=== PATIENT | female | born 1965 | race Caucasian/White ===

== ENCOUNTER 2020-12-06 09:58 | Emergency (ER) | payer OTHER, MEDICAID ==
[~2020-12-06] VITALS: Ht 170.2 cm; Wt 77.1 kg
[2020-12-06 10:06] VITALS: BP_SYST 96
[2020-12-06 10:50] LABS: BASOPHILS # (AUTO) 0.1 K/uL (0.0-0.2); BASOPHILS % (AUTO) 0.9 % (0.0-2.0); EOSINOPHILS # (AUTO) 0.1 K/uL (0.0-0.4); EOSINOPHILS % (AUTO) 1.6 % (0.0-4.0); HEMATOCRIT 46.3 % (36-48); HEMOGLOBIN 15.5 g/dL (12.0-16.0); LYMPHOCYTES # (AUTO) 1.7 K/uL (1.0-5.5); MEAN CORPUSCULAR HEMOGLOBIN 31 pg (27-31); MEAN CORPUSCULAR HGB CONC 34 % (32-36); MEAN CORPUSCULAR VOLUME 92 fL (79.0-98.0); MONOCYTES # (AUTO) 0.4 K/uL (0.0-1.0); MONOCYTES % (AUTO) 4.9 % (1.7-9.3); NEUTROPHILS # (AUTO) 5.1 K/uL (1.8-7.7); NEUTROPHILS % (AUTO) 69.6 % (40.0-70.0); PLATELET COUNT (AUTO) 311 K/uL (130-430); RED BLOOD CELL COUNT(AUTO) 5.03 MIL/uL (4.2-6.2); RED CELL DISTRIBUTION WIDTH 14.5 % (9.0-15.0); WHITE BLOOD COUNT (AUTO) 7.3 K/uL (4.8-10.8)
[2020-12-06 10:54] LABS: CALCIUM 8.9 mg/dL (8.4-11.0); CREATININE 1.02 mg/dL (0.55-1.30); POTASSIUM 4.1 mmol/L (3.5-5.1)
[2020-12-06 11:01] LABS: ALBUMIN 3.9 g/dL (3.4-4.8); TOTAL BILIRUBIN 0.9 mg/dL (0.0-1.0)
[2020-12-06 11:39] LABS: PROTHROMBIN TIME 9.9 SECS (9.5-12.5)
[2020-12-06 12:40] VITALS: BP_SYST 96
== END 2020-12-06 12:40 | disposition home or self-care (01) ==
LOC: SED 09:58
DX: R55 Syncope and collapse (principal); Z88.5 Allergy status to narcotic agent; Z88.8 Allergy status to other drugs, medicaments and biological substances
CPT/HCPCS: 36415; 70450-TC; 71045; 76376; 80053; 82550-TC; 83605; 84484; 85025; 85610-TC; 85730-TC; 93005; 99285

== ENCOUNTER 2021-11-27 18:07 | Emergency (ER) | payer OTHER, MEDICAID ==
[~2021-11-27] VITALS: Ht 165.1 cm; Wt 99.8 kg
--- NOTE | 2021-11-27 18:27 | NUR ---
Patient to ER bed 02 to gown for evaluation. Side rails up. Report RECEIVED FROM CARLY HERNANDEZ
--- NOTE | 2021-11-27 18:30 | NUR ---
PATIENT BROUGHT IN BLS FROM [facility] IN THE BOX COMPLAINING OF BILATERAL LEG PAIN AND SWELLING. PATIENT REPORTS HAS BEEN TO 3 OTHER HOSPITALS THIS WEEK BUT HAS BEEN DISCHARGED EACH TIME. PAIN 10/10 PATIENT IS CALM AND EYES ARE CLOSED. VSS. NO OTHER COMPLAINTS/INJURIES PER PATIENT OR NOTED.
[2021-11-27 18:34] VITALS: BP_SYST 101
--- NOTE | 2021-11-27 18:38 | NUR ---
ER at bedside examining patient.
--- NOTE | 2021-11-27 19:41 | NUR ---
PATIENT MOVED TO [facility] STATES THAT SHE IS CLAUSTROPHOBIC AND NEEDS TO BE OPEN ROOM.
--- NOTE | 2021-11-27 19:54 | NUR ---
PATIENT OFF UNIT TO RADIOLOGY WITH [employer] [facility] FOR BLE
--- NOTE | 2021-11-27 20:12 | NUR ---
RETURNED FROM ULTRASOUND. VSS
--- NOTE | 2021-11-27 20:40 | NUR ---
PHLE[facility] AT BEDSIDE FOR BLOOD DRAW
[2021-11-27 20:54] LABS: BASOPHILS % (AUTO) 0.5 % (0.0-2.0); EOSINOPHILS # (AUTO) 0.1 K/uL (0.0-0.4); EOSINOPHILS % (AUTO) 2.6 % (0.0-4.0); HEMATOCRIT 36.5 % (36-48); HEMOGLOBIN 12.1 g/dL (12.0-16.0); LYMPHOCYTES # (AUTO) 0.7 K/uL (1.0-5.5); LYMPHOCYTES % (AUTO) 13.3 % (20.5-51.5); MEAN CORPUSCULAR HEMOGLOBIN 30 pg (27-31); MEAN CORPUSCULAR HGB CONC 33 % (32-36); MEAN CORPUSCULAR VOLUME 89 fL (79.0-98.0); MONOCYTES # (AUTO) 0.3 K/uL (0.0-1.0); MONOCYTES % (AUTO) 5.4 % (1.7-9.3); NEUTROPHILS # (AUTO) 4.4 K/uL (1.8-7.7); NEUTROPHILS % (AUTO) 78.2 % (40.0-70.0); PLATELET COUNT (AUTO) 293 K/uL (130-430); RED BLOOD CELL COUNT(AUTO) 4.11 MIL/uL (4.2-6.2); RED CELL DISTRIBUTION WIDTH 13.6 % (9.0-15.0); WHITE BLOOD COUNT (AUTO) 5.6 K/uL (4.8-10.8)
[2021-11-27 21:00] LABS: CALCIUM 7.8 mg/dL (8.4-11.0); CREATININE 0.7 mg/dL (0.55-1.30); POTASSIUM 3.8 mmol/L (3.5-5.1)
[2021-11-27 21:09] LABS: TOTAL BILIRUBIN 0.5 mg/dL (0.0-1.0)
[2021-11-27] MEDS ORDERED: FURO-149 PO ×3 (21:28→21:29)
[2021-11-27 21:45] VITALS: BP_SYST 118
--- NOTE | 2021-11-27 21:48 | NUR ---
Patient given written and verbal discharge instructions and verbalizes understanding. ER MD discussed with patient the results and treatment provided. Patient in stable condition. ID arm band removed. Rx of LASIX given. Patient educated on pain management and to follow up with PMD. Pain Scale 0/10 Opportunity for questions provided and answered. Medication side effect fact sheet provided.
[2021-11-28] MEDS ORDERED: LOPE2CAP PO (16:51)
[2021-11-28] MEDS ORDERED: FURO-150 PO (21:46)
[2021-11-28] MEDS ORDERED: POTA-197 PO (21:47)
== END 2021-11-27 21:48 | disposition home or self-care (01) ==
LOC: SED 18:07
DX: R60.0 Localized edema (principal); Z88.5 Allergy status to narcotic agent; Z88.8 Allergy status to other drugs, medicaments and biological substances
CPT/HCPCS: 36415; 71045; 80053; 83880; 84484; 85025; 93005; 93970; 99285

== ENCOUNTER 2021-11-28 13:28 | Emergency (ER) | payer OTHER, MEDICAID ==
[~2021-11-28] VITALS: Ht 170.2 cm; Wt 95.3 kg
[~2021-11-28 13:28] MED LIST: FURO-149 PO
[2021-11-28] MEDS ORDERED: ONDANSETRON 4 MG ODT TAB PO ONE (14:30)
[2021-11-28 15:09] VITALS: BP_SYST 93
[2021-11-28 16:07] LABS: CREATININE 0.66 mg/dL (0.55-1.30); POTASSIUM 4.3 mmol/L (3.5-5.1)
[2021-11-28 16:13] LABS: ALBUMIN 3.1 g/dL (3.4-4.8); TOTAL BILIRUBIN 0.6 mg/dL (0.0-1.0)
[2021-11-28 16:33] LABS: BASOPHILS % (AUTO) 0.4 % (0.0-2.0); EOSINOPHILS # (AUTO) 0.2 K/uL (0.0-0.4); EOSINOPHILS % (AUTO) 3.7 % (0.0-4.0); HEMATOCRIT 37.3 % (36-48); HEMOGLOBIN 12.3 g/dL (12.0-16.0); LYMPHOCYTES % (AUTO) 18.4 % (20.5-51.5); MEAN CORPUSCULAR HEMOGLOBIN 29 pg (27-31); MEAN CORPUSCULAR HGB CONC 33 % (32-36); MEAN CORPUSCULAR VOLUME 89 fL (79.0-98.0); MONOCYTES # (AUTO) 0.5 K/uL (0.0-1.0); MONOCYTES % (AUTO) 10.3 % (1.7-9.3); NEUTROPHILS # (AUTO) 3.5 K/uL (1.8-7.7); NEUTROPHILS % (AUTO) 67.2 % (40.0-70.0); PLATELET COUNT (AUTO) 333 K/uL (130-430); RED CELL DISTRIBUTION WIDTH 13.3 % (9.0-15.0); WHITE BLOOD COUNT (AUTO) 5.3 K/uL (4.8-10.8)
[2021-11-28] MEDS ORDERED: LOPE2CAP PO (16:51)
[2021-11-28 18:04] VITALS: BP_SYST 104
[2021-11-28] MEDS ORDERED: FURO-150 PO (21:46)
[2021-11-28] MEDS ORDERED: POTA-197 PO (21:47)
== END 2021-11-28 18:05 | disposition home or self-care (01) ==
LOC: SED 13:28
DX: R19.7 Diarrhea, unspecified (principal); Z88.5 Allergy status to narcotic agent; Z79.899 Other long term (current) drug therapy
CPT/HCPCS: 36415; 80053; 82150; 83605; 83690; 85025; 86140; 99283

== ENCOUNTER 2021-11-28 21:27 | Emergency (ER) | payer OTHER, MEDICAID ==
[~2021-11-28] VITALS: Ht 170.2 cm; Wt 93.4 kg
[~2021-11-28 21:27] MED LIST changes: +LOPE2CAP PO
[2021-11-28 21:45] VITALS: BP_SYST 103
[2021-11-28] MEDS ORDERED: FURO-150 PO (21:46)
[2021-11-28] MEDS ORDERED: POTA-197 PO (21:47)
[2021-11-28] MEDS ORDERED: FUROSEMIDE 20 MG TABLET PO ONE (22:00)
[2021-11-28 22:07] VITALS: BP_SYST 103
== END 2021-11-28 22:05 | disposition home or self-care (01) ==
LOC: SED 21:27
DX: R60.0 Localized edema (principal); Z88.5 Allergy status to narcotic agent; Z79.899 Other long term (current) drug therapy
CPT/HCPCS: 99283